=== PATIENT | male | born 1950 | race Caucasian/White ===

== ENCOUNTER → 2020-08-28 | Outpatient (CLI) | payer MEDICARE ==
[~2020-08-28] MED LIST: ALBU2.5V12 NEB; ASCO500C9 PO; BUDE0.5A NEB; DOXY100T PO; GLIM4TAB8 PO; INSU100I13 SQ; LISI1TAB39 PO; METF10007 PO; MV-M1TAB16 PO; PERM60CR TP; ZINC50TA42 PO; [UNRECOGNIZED DRUG - CODE] PO
--- NOTE | 2020-08-28 13:21 | DIREP ---
PROCEDURE:US DUPLEX EXTREM VEINS UNILATER/LIMITED-LT COMPARISON:None. INDICATIONS:LEFT LEG PAIN TECHNIQUE:The left lower extremity was evaluated utilizing day scale images with segmental compression, color Doppler, and spectral Doppler with respiratory variation and augmentation. FINDINGS: Common femoral vein:Patent Superficial femoral vein:Patent Popliteal vein:Patent Posterior tibial vein:Patent Anterior tibial vein:Patent Proximal greater saphenous vein:Nonocclusive clot, at the junction with the CFV. There is extensive surgical history of the greater saphenous vein. Waveforms: Within normal limits. CONCLUSION: 1. Nonocclusive clot in the greater saphenous vein (superficial) but at the junction with the common femoral vein. Some consider superficial clot within the greater saphenous vein within 3 cm of the common femoral vein junction to be the equivalent of a DVT. If this does not meet treatment criteria, follow-up ultrasound in 3-5 days could be considered to assess for propagation into the deep system. It is complicating that the patient has had previous surgery on the greater saphenous vein, no prior vascular study for comparison in this system. A call-back number was provided by telephone at 1:17 pm on August 28, 2020 to the answering service for Dr. Phillip Alexander. . Dictated by: Goldie Castellanos MD on 08/28/2020 at 01:06 PM
== END | disposition home or self-care (01) ==
LOC: RAD 12:17
PROVIDERS: ATTEND Nurse Practitioner Family
DX: M79.605 Pain in left leg (principal)
CPT/HCPCS: 93971

== ENCOUNTER 2021-02-14 18:48 | Emergency (ER) | payer MEDICARE ==
[~2021-02-14] VITALS: Ht 175.3 cm; Wt 101.2 kg
[2021-02-14 19:03] VITALS: BP 121/79
[2021-02-14] MEDS ORDERED: NS 1000ML 1,000 ML IV STA (19:04)
[2021-02-14] MEDS ORDERED: NS 1000ML 1,000 ML ONE (19:04)
--- NOTE | 2021-02-14 19:08 | ER.PDOC ---
General Chief Complaint: Requesting Medical Care Stated Complaint: HIGH BLOOD SUGAR TRAVEL OUT OF US: No Time seen by MD: 19:06 Source: patient Exam Limitations: no limitations History of Present Illness Initial Comments Elevated blood sugar at home this evening on routine check. He took insulin prior to coming to the ED. Blood sugar check here shows 352. He denies any complaint. No chest pain or shortness of breath. Severity: moderate Associated Symptoms: denies symptoms Allergies: Coded Allergies: cephalexin (Verified Allergy, Unknown, 07/05/18) clindamycin (Verified Allergy, Unknown, 07/05/18) guaifenesin (Verified Allergy, Unknown, 07/05/18) phenylephrine (Verified Allergy, Unknown, 07/05/18) phenylpropanolamine (Verified Allergy, Unknown, 07/05/18) sulfamethoxazole (Verified Allergy, Unknown, 07/05/18) trimethoprim (Verified Allergy, Unknown, 07/05/18) Home Meds Active Scripts Permethrin (PERMETHRIN) 60 Gm Cream..g., 60 GM TP OT for 1 Day, #1 TUBE 1 Refill Prov:DARRYL ERIC MD 08/12/20 Doxycycline Hyclate (DOXYCYCLINE HYCLATE) 100 Mg Tablet, 100 MG PO BID for 10 Days, #20 TAB Prov:DARRYL ERIC MD 08/12/20 Insulin Glargine,Hum.rec.anlog (LANTUS SOLOSTAR) 100 Unit/1 Ml Insuln.pen, 10 UNIT SQ DAILY24 for 30 Days, #3 ML Prov:DARRYL ERIC MD 08/12/20 Reported Medications Mv-Mn/Iron/FA/Herbal Cmplx#190 (Vitamin D3 Complete Caplet) 1 Each Tablet, 1 EACH PO DP, TAB 08/09/20 Budesonide (BUDESONIDE) 0.5 Mg/2 Ml Ampul.neb, 1 VIAL NEB BID, #120 MILLILITER 3 Refills 08/09/20 Metformin HCl (Metformin HCl ER) 1,000 Mg [id number], 1 TAB PO BID for diabetes for 30 Days, #60 TAB 0 Refills 08/09/20 Zinc (ZINC) 50 Mg Tablet, 1 TAB PO QD for 30 Days, #30 TAB 0 Refills 08/09/20 Ascorbic Acid (Vitamin C) 500 Mg Capsule, 1 CAP PO QD for 28 Days, #28 CAP 0 Refills 08/09/20 Albuterol Sulfate (ALBUTEROL SULFATE) 2.5 Mg/0.5 Ml Vial.neb, 1 VIAL NEB Q6, #120 VIAL 5 Refills 08/09/20 Glimepiride (GLIMEPIRIDE) 4 Mg Tablet, 1 TAB PO DAILY, #30 TAB 5 Refills 07/05/18 Lisinopril/Hydrochlorothiazide (LISINOPRIL-HCTZ 20-12.5 MG TAB) 1 Each Tablet, 1 TAB PO BID, #30 TAB 5 Refills 07/05/18 Past Medical History Medical History: diabetes, hypertension Surgical History: no surgical history Family History Significant Family History: no pertinent family hx Social History Smoking: non-smoker Alcohol Use: none Drug Use: none Review of Systems Constitutional: no symptoms reported EENTM: no symptoms reported Respiratory: no symptoms reported Cardiovascular: no symptoms reported Gastrointestinal: no symptoms reported All Other Systems: Reviewed and Negative Physical Exam General Appearance: No Apparent Distress, WD/WN EENT: eyes nml inspection, nml ENT inspection Neck: Non-Tender, Full Range of Motion, Supple, Normal Inspection Respiratory: chest non-tender, lungs clear, normal breath sounds, no respiratory distress, no accessory muscle use CVS: reg rate & rhythm, no murmur, no gallop, pulses nml, nml capillary refill Gastrointestinal: Normal Bowel Sounds, No Organomegaly, No Pulsatile Mass, Non Tender Back: Normal Inspection, No CVA Tenderness Extremities: Normal Range of Motion, Non-Tender, Normal Inspection 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 as Tested Skin: Normal Color Results/Orders Results/Orders Orders - KEVIN BARRAZA MD Basic Metabolic Panel (02/14/21 19:04) 0.9 % Sodium Chloride (Ns 1000ml) (02/14/21 19:04) 0.9 % Sodium Chloride (Ns 1000ml) (02/14/21 19:04) Bedside Glucose (02/14/21 18:59) Vital Signs Date Time Temp Pulse Resp B/P (MAP) Pulse Ox O2 Delivery O2 Flow Rate FiO2 02/14/21 19:03 98.8 111 18 121/79 (93) 93 Room Air 02/14/21 19:03 98.8 111 18 93 02/14/21 19:03 98.8 111 18 Administered Medications Medications (Trade) Dose Ordered Sig/Arabella Route PRN Reason Start Time Stop Time Status Last Admin Dose Admin Sodium Chloride 1,000 ml @ 1,200 mls/hr Q50M STAT IV 02/14/21 19:04 02/14/21 19:53 DC 02/14/21 19:00 1,200 MLS/HR Laboratory Tests Test 02/14/21 18:59 02/14/21 19:05 POC Glucose 352 (70 - 110) H Sodium Level 131 mmol/L (132-145) L Potassium Level 4.5 mmol/L (3.6-5.2) Chloride Level 95.0 mmol/L (96-109) L Carbon Dioxide Level 25.1 mmol/L (20.0-32) Glucose Level 373 mg/dL (70-110) H Blood Urea Nitrogen 44 mg/dL (7-18) H Creatinine 1.35 mg/dL (0.59-1.40) Calcium Level 9.0 mg/dL (8.4-10.5) Anion Gap 15.4 Estimated GFR () 63.6 (>/=60) Est GFR (CKD-EPI)(Non-Afr [place]) 52.6 (>/=60) BUN/Creatinine Ratio 32.0 Progress Progress Patient is feeling better after IV fluids, BS is 335. 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
--- NOTE | 2021-02-14 19:14 | NUR ---
ARRIVAL PT ARRIVED POV REPORTING BS ELEVATED. PT A & O X 3, RR REGULAR, NON-LABORED, CLEAR W/RATE 18. ST 111, REGULAR NO ECTOPY, NO PVC'S. BEDSIDE GLUCOSE 352 ERP AWARE. PT WITH DRY ORAL MUCOSA, 20 GA L AC, IV FLUIDS 1000 ML'S INITIATED. LABS DRAWN. PT PLEASEANT, COOPERATIVE. PENDING LAB RESULTS. WARM BLANKET GIVEN FOR COMFORT. Addendum: 02/14/21 at 2006 by MARIA G BEDSIDE GLOOD GLUCOSE 335 ERP AWARE.
[2021-02-14 19:21] LABS: CARBON DIOXIDE 25.1 mmol/L (20.0-32)
--- NOTE | 2021-02-14 20:17 | NUR ---
IV DC'D AT THIS TIME. CATHETER TIP INTACT.
--- NOTE | 2021-02-14 20:20 | NUR ---
DISCHARGE DC INSTRUCTIONS GIVEN, ENCOURAGE INCREASE OF WATER DAILY. ENCOURAGED FOLLOW UP WITH PCP. PT VERBALIZED UNDERSTANDING. VITALS OBTAINED,STABLE. BS 335. PT AMBULATED TO POV WITHOUT DIFFICULTY.
== END 2021-02-14 20:20 | disposition home or self-care (01) ==
LOC: ER 18:48
DX: E11.65 Type 2 diabetes mellitus with hyperglycemia (principal); I10 Essential (primary) hypertension; Z79.4 Long term (current) use of insulin; Z79.899 Other long term (current) drug therapy; Z88.1 Allergy status to other antibiotic agents; Z88.2 Allergy status to sulfonamides
CPT/HCPCS: 36415; 80048; 82948 ×2; 96360; 99283; J7030